=== PATIENT | female | born 1980 | race Hispanic/Latino ===

== ENCOUNTER → 2017-11-09 | Outpatient (CLI) | payer BC ==
[~2017-11-09] MED LIST: ALBUTEROL2.5 MG/3 M IH; IOPAMIDOL 370 MG/ML 200 ML INFUS..BTL INJ ONE; PROAIR HFA INH8.5 GM INH; SODIUM CHLORIDE 0.9% 50ML 50 ML ONE
--- NOTE | 2017-11-09 16:27 | Diagnostic Imaging Report ---
PROCEDURE:CT ABDOMEN W COMPARISON:None. INDICATIONS:ABDOMINAL WALL MASS TECHNIQUE: Multidetector CT scanning of the abdomen was performed after the administration of 100 cc of nonionic contrast. A marker was placed in the area of clinical concern. Coronal and sagittal reformations were obtained. Routine protocol performed. FINDINGS: Lung bases: Clear. Visualized portion mediastinum is normal. Liver: Mildly decreased in attenuation without mass. Biliary: Present contains multiple calcified gallstones are measuring up to 14 mm. No biliary ductal dilatation. Spleen: Normal size and attenuation without mass. Pancreas: Normal Adrenal Glands: Normal Kidneys: Symmetric enhancement. No mass or hydronephrosis. Gastrointestinal: The stomach is normal. Visualized portions of the small bowel and large bowel are normal in diameter with normal wall thickness. Visualized portion of the appendix is normal. Vasculature: Normal Peritoneum/Retroperitoneum: No free fluid or fluid collection. No lymphadenopathy. Musculoskeletal: A marker is in the left reji-abdomen. There is diffuse subcutaneous inflammation extending from the skin surface to the abdominal wall musculature. The area of inflammation is approximately 5.7 x 4.1 x 6.5 cm. There is no evidence of mass or hernia. The underlying abdominal wall musculature is normal in attenuation and morphology. There are no focal osseous lesions. CONCLUSION: Focal subcutaneous inflammation in the left in the abdomen without mass or hernia. Hepatic steatosis. Cholelithiasis. Normal biliary tree. Dictated by: Osman Lloyd M.D. on 11/09/2017 at 16:27 Electronically approved by: Osman Lloyd M.D. on 11/09/2017 at 16:27
== END | disposition home or self-care (01) ==
LOC: CT 10:09
PROVIDERS: ATTEND Surgery
DX: R19.00 Intra-abdominal and pelvic swelling, mass and lump, unspecified site (principal); K76.0 Fatty (change of) liver, not elsewhere classified; K80.20 Calculus of gallbladder without cholecystitis without obstruction
CPT/HCPCS: 74160; Q9967

== ENCOUNTER → 2017-11-20 | Day surgery (SDC) | payer BC ==
[2017-11-19 10:16] LABS: BASOPHILS % 0.4 % (0.0-1.0); EOSINOPHILS # (AUTO) 0.3 (0.0-0.4); EOSINOPHILS % 4.8 % (0.0-6.0); HEMATOCRIT 33.1 % (34.2-44.1); HEMOGLOBIN 10.1 g/dL (12.0-16.0); LYMPHOCYTES # (AUTO) 1.9 (1.0-3.2); MEAN CORPUSCULAR HEMOGLOBIN 24.1 pg (28-32); MEAN CORPUSCULAR HGB CONC 30.5 g/dL (31-35); MONOCYTES # (AUTO) 0.3 (0.2-0.8); MONOCYTES % 4.6 % (4.4-11.3); NEUTROPHILS # (AUTO) 4.2 (2.1-6.9); NEUTROPHILS % 61.6 % (38.7-80.0); PLATELET COUNT 304 x10e3/uL (140-360); RED BLOOD COUNT 4.19 x10e6/uL (3.6-5.1); RED CELL DISTRIBUTION WIDTH 17.3 % (11.7-14.4)
[2017-11-19 10:31] LABS: ANION GAP 12.4 mmol/L (8-16); BLOOD UREA NITROGEN 10 mg/dL (7-26); BUN/CREATININE RATIO 14 (6-25); CALCIUM 9.4 mg/dL (8.4-10.2); CARBON DIOXIDE 26 mmol/L (22-29); CHLORIDE 106 mmol/L (98-107); CREATININE, SERUM 0.74 mg/dL (0.57-1.11); EST GLOMERULAR FILTRATION RATE > 60 ML/MIN (60-); GLUCOSE 109 mg/dL (74-118); POTASSIUM 4.4 mmol/L (3.5-5.1); SODIUM 140 mmol/L (136-145)
[~2017-11-20] MED LIST changes: +ACETAMINOPHEN 1000 MG/100 ML 100 ML IV ONE; +BUPIVACAINE 0.25%/EPI 30ML SDV INJ ONE; +DEXAMETHASONE SOD PHOS INJ 4 MG/ML VIAL ONE; +FENTANYL CITRATE/PF 100MCG/2 ML INJ ONE; -IOPAMIDOL 370 MG/ML 200 ML INFUS..BTL INJ ONE; +LIDOCAINE HCL 2% LOCAL INJ 5 ML SDV VIAL INJ ONE; +MIDAZOLAM HCL 2 MG/2 ML VIAL ONE; +ONDANSETRON HCL INJ 2 MG/ML VIAL ONE; +PROPOFOL IV EMULSION 10 MG/ML 20 ML VIAL ONE; +SEVOFLURANE INHAL SOLN 250 ML PEN BTL ONE; -SODIUM CHLORIDE 0.9% 50ML 50 ML ONE
--- OUTSIDE RECORDS SUMMARY | 2017-11-20 06:05 | XMS REPORT ---
Author Author [facility] Address Unknown Phone Unavailable Care Team Providers Care Firer Watertender Name Role Phone ELIZABETH CABRERA Unavailable Unavailable Problems This patient has no known problems. Allergies, Adverse Reactions, Alerts This patient has no known allergies or adverse reactions. Medications This patient has no known medications. Results Test Description Test Time Test Comments Text Results Atomic Results Result Comments CT ABDOMEN W [place] [address] Patient Name: LINDA ROBERTS MR #: [id number] : 1980 Age/Sex: 37/F Req # : [id number] Adm Physician: Ordered by: ELIZABETH CABRERA MD Report #: [id number] Location: CT Room/Bed: Procedure: [id number]- [id number] CT/CT ABDOMEN W Exam Date: 11/09/17 Exam Time: 1100 REPORT STATUS: Signed PROCEDURE: CT ABDOMEN W COMPARISON: None. INDICATIONS: ABDOMINAL WALL MASS TECHNIQUE: Multidetector CT scanning of the abdomen was performed after the administration of 100 cc of nonionic contrast. A marker was placed in the area of clinical concern. Coronal and sagittal reformations were obtained. Routine protocol performed. FINDINGS: Lung bases: Clear. Visualized portion mediastinum is normal. Liver: Mildly decreased in attenuation without mass. Biliary: Present contains multiple calcified gallstones are measuring up to 14 mm. No biliary ductal dilatation. Spleen: Normal size and attenuation without mass. Pancreas: Normal Adrenal Glands: Normal Kidneys: Symmetric enhancement. No mass or hydronephrosis. Gastrointestinal: The stomach is normal. Visualized portions of the small bowel and large bowel are normal in diameter with normal wall thickness. Visualized portion of the appendix is normal. Vasculature: Normal Peritoneum/Retroperitoneum: No free fluid or fluid collection. No lymphadenopathy. Musculoskeletal: A marker is in the left reji-abdomen. There is diffuse subcutaneous inflammation extending from the skin surface to the abdominal wall musculature. The area of inflammation is approximately 5.7 x 4.1 x 6.5 cm. There is no evidence of mass or hernia. The underlying abdominal wall musculature is normal in attenuation and morphology. There are no focal osseous lesions. CONCLUSION: Focal subcutaneous inflammation in the left in the abdomen without mass or hernia. Hepatic steatosis. Cholelithiasis. Normal biliary tree. Dictated by: Stanley Lolyd M.D. on 11/09/2017 at 16:27 Electronically approved by: Stanley Lloyd M.D. on 11/09/2017 at 16:27 Dictated By: STANLEY LLOYD MD [id number] Transcribed By: GRECIA on 11/09/17 0622 COPY TO: ELIZABETH CABRERA MD
--- NOTE | 2017-11-20 09:48 | Operative Report ---
DATE OF PROCEDURE: November 20, 2017 PREOPERATIVE DIAGNOSIS: Mass of the left chest wall. POSTOPERATIVE DIAGNOSIS: Mass of the left chest wall, . PROCEDURE PERFORMED: Excision with flap closure of mass of the left chest wall. ANESTHESIA: General. ESTIMATED BLOOD LOSS: About 25 mL. DRAINS: One 10 mm flat Tay-Hodges drain. COMPLICATIONS: None. INDICATIONS AND FINDINGS: The patient is a 37-year-old female who had been complaining of a mass of the left chest wall. This was preceded 3 months ago by attempted drainage of the area times 3 without success, and persistence of the mass, reason for which she came to the office. The patient had a CT scan of the area, which was located in the left lower chest wall anteriorly. There was no mass seen. Clinically, she presented with 2 distant, firm, round mobile masses, one about 5 cm and the other one about 3 cm located in the left lower anterior chest wall over the costal area. Final path report is pending. There was no axillary adenopathy. The breasts had no palpable masses. She did not give any history of trauma. DESCRIPTION OF PROCEDURE: With the patient lying on the operating table in the supine position and after administration of general endotracheal anesthesia, she was prepped and draped for excision of the left chest wall masses with flap closure. An elliptical incision was made over the masses, and then the dissection was carried down through skin and subcutaneous tissue all the way down to the fascia. The most medial mass was close to the fascia of the underlying serratus muscle, and this area was removed with the underlaying fascia of the muscle. Gross clear margins were obtained in all directions. The bleeding points were cauterized. The wound was closed and flaps were raised superiorly and inferiorly to allow closure without tension. Then the wound was closed in layers using a combination of 0 and 2-0 Vicryl for the soft tissues. The skin was closed using a combination of 2-0, 3-0 silk and char for the skin. Then 0.25% Marcaine with epinephrine was given as a local block. The patient tolerated the procedure well, and taken to the recovery room in stable condition. The patient's family was informed of the fact that due to the large size and location of the masses, which were separate from each other in that location previously described, a large incision would have to be made to allow closure. They understood and agreed with the procedure. Job#: [id number] RUBY
== END | disposition home or self-care (01) ==
LOC: OR 06:02
PROVIDERS: ATTEND Surgery
DX: D49.89 Neoplasm of unspecified behavior of other specified sites (principal); J45.909 Unspecified asthma, uncomplicated; K21.9 Gastro-esophageal reflux disease without esophagitis; F41.9 Anxiety disorder, unspecified; Z01.810 Encounter for preprocedural cardiovascular examination; Z01.812 Encounter for preprocedural laboratory examination
CPT/HCPCS: 21555; 36415; 80048; 81025; 85025; 88305; 93005; J1100; J2001; J2250; J2405